=== PATIENT | male | born 1995 | race Caucasian/White ===

== ENCOUNTER 2016-07-08 07:11 | Emergency (ER) | payer MEDICAID ==
[2016-07-08] MEDS ORDERED: Ibuprofen 100 MG/5 ML UDC ONE (20:26)
== END 2016-07-08 07:56 | disposition home or self-care (01) ==
LOC: ER 07:11
DX: S43.102A Unspecified dislocation of left acromioclavicular joint, initial encounter (principal); W51.XXXA Accidental striking against or bumped into by another person, initial encounter; Y93.23 Activity, snow (alpine) (downhill) skiing, snowboarding, sledding, tobogganing and snow tubing; Y92.39 Other specified sports and athletic area as the place of occurrence of the external cause